=== PATIENT | female | born 1975 | race Caucasian/White ===

== ENCOUNTER 2018-10-20 11:37 | Emergency (ER) | payer BC ==
[2018-10-20 12:31] VITALS: BP 149/94
--- NOTE | 2018-10-20 12:39 | UC ---
Respiratory Complaint HPI - HPI Summary HPI Summary: 2 WEEKS OF COUGH AND CONGESTION. NO FEVER, NAUSEA/VOMITING. NO SORE THROAT OR EAR PAIN. STATES SHE GETS THIS REACTION TO THE FLU SHOT EVERY YEAR. SYMPTOMS IMPROVE WITH STEROIDS AND AN INHALER. - History of Current Complaint Chief Complaint: UCRespiratory Stated Complaint: NON-PRODUCTIVE COUGH Time Seen by Provider: 10/20/18 12:33 Hx Obtained From: Patient Onset/Duration: Gradual Onset, Lasting Weeks, Still Present Timing: Constant Severity Initially: Moderate Severity Currently: Moderate Pain Intensity: 0 Pain Scale Used: 0-10 Numeric Character: Cough: Productive Aggravating Factors: Nothing Alleviating Factors: Nothing Associated Signs And Symptoms: Positive: URI, Nasal Congestion. Negative: Dyspnea, Fever, Chills, Wheezing - Allergies/Home Medications Allergies/Adverse Reactions: Allergies Allergy/AdvReac Type Severity Reaction Status Date / Time latex Allergy Rash Verified 10/20/18 12:31 adhesive tape Allergy Rash Uncoded 10/20/18 12:31 Home Medications: Home Medications L.acidoph,Paracasei, B.lactis [Probiotic] 1 each PO 10/20/18 [History] Losartan Potassium [Cozaar] 50 mg PO 10/20/18 [History] guaiFENesin [Mucinex] 600 mg PO 10/20/18 [History] PMH/Surg Hx/FS Hx/Imm Hx Cardiovascular History: Hypertension - Surgical History Surgical History: Yes Surgery Procedure, Year, and Place: CSP FUSION 2011, DEPRESSED SKULL FRACTURE A INFANT 6 MTHS OLD. GALLBLADDER ENDOMETRIAL ABLATION-HERNIA SURGERY - Family History Known Family History: Positive: None, Non-Contributory - Social History Alcohol Use: Occasionally Substance Use Type: None Smoking Status (MU): Heavy Every Day Tobacco Smoker Type: Cigarettes Review of Systems All Other Systems Reviewed And Are Negative: Yes Constitutional: Positive: Negative Eyes: Positive: Negative ENT: Positive: Nasal Discharge Respiratory: Positive: Cough Cardiovascular: Positive: Negative Gastrointestinal: Positive: Negative Physical Exam Triage Information Reviewed: Yes Appearance: Well-Appearing, No Pain Distress, Well-Nourished Vital Signs: Initial Vital Signs Temp 98.8 F 10/20/18 12:28 Pulse 100 10/20/18 12:28 Resp 18 10/20/18 12:28 BP 149/94 10/20/18 12:28 Pulse Ox 96 10/20/18 12:28 Vital Signs Reviewed: Yes Eyes: Positive: Conjunctiva Clear ENT: Positive: Hearing grossly normal, Pharynx normal, TMs normal Neck: Positive: Supple, Nontender, No Lymphadenopathy Respiratory: Positive: Normal breath sounds - WITH THE OCCASIONAL COARSE SOUND, No respiratory distress, No accessory muscle use Cardiovascular Exam: Normal Abdomen Description: Positive: Soft Musculoskeletal: Positive: No Edema Neurological: Positive: Alert Psychological: Positive: Age Appropriate Behavior Skin: Negative: Rashes UC Diagnostic Evaluation - Laboratory O2 Sat by Pulse Oximetry: 96 Respiratory Course/Dx - Differential Dx/Diagnosis Provider Diagnosis: Acute bronchitis Discharge - Sign-Out/Discharge Documenting (check all that apply): Patient Departure All imaging exams completed and their final reports reviewed: No Studies - Discharge Plan Condition: Stable Disposition: HOME Prescriptions: Albuterol HFA INHALER* [Ventolin HFA Inhaler*] 2 puff INH Q4H PRN #1 mdi PRN Reason: Shortness Of Breath predniSONE TAB* [Deltasone TAB*] 50 mg PO DAILY #5 tab Patient Education Materials: Acute Bronchitis (ED) Referrals: Lizzy Price [Primary Care Provider] - If Needed Additional Instructions: NO INDICATION FOR ANTIBIOTICS AT PRESENT. REST, HYDRATE, OTC MEDS NEEDED. WILL TREAT WITH PREDNISONE AND ALBUTEROL TO HELP WITH AIRWAY INFLAMMATION. SEEK FOLLOW-UP IF YOU ARE NOT IMPROVING OVER THE NEXT 1-2 WEEKS. - Billing Disposition and Condition Condition: STABLE Disposition: Home
== END 2018-10-20 12:56 | disposition home or self-care (01) ==
LOC: UCEAST 11:37
DX: J20.9 Acute bronchitis, unspecified (principal); I10 Essential (primary) hypertension; F17.210 Nicotine dependence, cigarettes, uncomplicated
CPT/HCPCS: 99212; G0463

== ENCOUNTER 2018-11-24 10:23 | Emergency (ER) | payer BC ==
[2018-11-24 11:12] VITALS: BP 160/72
[2018-11-24] MEDS ORDERED: Albuterol/Ipratropium NEB.SOL* Albuterol 2.5 MG/Ipratropium 0.5 MG 3 ML INH ONE (11:35)
[2018-11-24] MEDS ORDERED: predniSONE TAB* 20 MG PO ONE (11:35)
--- NOTE | 2018-11-24 11:36 | UC ---
Respiratory Complaint HPI - HPI Summary HPI Summary: 43 y/o female presents to the urgent care c/o productive cough, wheezing, chest congestion for the past 6 weeks. Pt reports her symptoms started after she got the influenza vaccine in 10/2018. She was then seen hereand Dx asthma for three-four weeks, coughing, dizziness, chest congestion, afebrile, productive cough. - History of Current Complaint Chief Complaint: UCRespiratory Stated Complaint: URI Time Seen by Provider: 11/24/18 11:16 Hx Obtained From: Patient Hx Last Menstrual Period: 11/10/18 ?: No Onset/Duration: Gradual Onset, Lasting Weeks - 6 weeks, Worse Since - 1 week Timing: Intermittent Episodes Severity Initially: Mild Severity Currently: Moderate Pain Intensity: 4 Pain Scale Used: 0-10 Numeric Character: Cough: Productive, Sputum Description: - yellowish Aggravating Factors: Recumbent Position Alleviating Factors: OTC Meds Associated Signs And Symptoms: Positive: Dyspnea, Wheezing, Dizziness, URI, Nasal Congestion, Sinus Discomfort - Risk Factors Pulmonary Embolism Risk Factors: Negative Cardiac Risk Factors: Hypertension Pseudomonas Risk Factors: Negative Tuberculosis Risk Factors: Negative - Allergies/Home Medications Allergies/Adverse Reactions: Allergies Allergy/AdvReac Type Severity Reaction Status Date / Time latex Allergy Rash Verified 11/24/18 11:12 adhesive tape Allergy Rash Uncoded 11/24/18 11:12 Home Medications: Home Medications Acetaminophen [Tylenol Extra Strength] 1,000 mg PO ONCE PRN 11/24/18 [History Confirmed 11/24/18] Loratadine [Claritin 10 MG CAP] 1 tab PO DAILY PRN 11/24/18 [History Confirmed 11/24/18] PMH/Surg Hx/FS Hx/Imm Hx Previously Healthy: Yes Cardiovascular History: Hypertension - Surgical History Surgical History: Yes Surgery Procedure, Year, and Place: CSP FUSION 2011, DEPRESSED SKULL FRACTURE A 6 MTHS OLD. GALLBLADDER ENDOMETRIAL ABLATION-HERNIA SURGERY - Family History Known Family History: Positive: Cardiac Disease, Hypertension - Social History Occupation: Employed Full-time Lives: With Family Alcohol Use: Occasionally Substance Use Type: None Smoking Status (MU): Heavy Every Day Tobacco Smoker Type: Cigarettes Amount Used/How Often: 1 ppd Household Exposure Type: Cigarettes Review of Systems All Other Systems Reviewed And Are Negative: Yes Constitutional: Positive: Negative Skin: Positive: Negative Eyes: Positive: Negative ENT: Positive: Nasal Discharge - yeelowish, Sinus Congestion, Sinus Pain/ Tenderness, Other - dizziness at times Respiratory: Positive: Shortness Of Breath - at times, Cough - rpoductive w/ yellowish phlegm, Other - wheezing Cardiovascular: Positive: Negative Gastrointestinal: Positive: Negative Genitourinary: Positive: Negative Motor: Positive: Negative Neurovascular: Positive: Negative Musculoskeletal: Positive: Negative Neurological: Positive: Negative Psychological: Positive: Negative Is Patient Immunocompromised?: No Physical Exam - Summary Physical Exam Summary: Vital Signs Reviewed: Yes General: well developed, well nourished female sitting in the examining table w/ o any apparent distress Eyes: Positive: Conjunctiva Clear - PERRLA, EOMI, fundi grossly normal ENT: Positive: Normal ENT inspection, Hearing grossly normal, Pharynx normal, Nasal congestion - edematous and erythematous nasal mucosa, Nasal drainage - yellowish drainage, TMs normal. Negative: Tonsillar swelling, Tonsillar exudate Neck: Positive: Supple, Nontender, No Lymphadenopathy Respiratory: no orthopnea or dyspnea. Able to speak in full sentences, no retractions or accessory muscle use, no tripod position, stridor, or head bobbing. Positive breath sounds bilaterally. diffuse scattered wheezing and rhonchi on b/L lungs, no crackles or rales. Cardiovascular: Positive: RRR, No Murmur, Pulses Normal, Brisk Capillary Refill Abdomen Description: Positive: Nontender, No Organomegaly, Soft. Negative: CVA Tenderness (R), CVA Tenderness (L) Bowel Sounds: Positive: Present Musculoskeletal Exam: Normal Musculoskeletal: Positive: Strength Intact, ROM Intact, No Edema Neurological Exam: Normal Psychological Exam: Normal Skin Exam: Normal Triage Information Reviewed: Yes Vital Signs: Initial Vital Signs Temp 97.5 F 11/24/18 11:07 Pulse 82 11/24/18 11:07 Resp 18 11/24/18 11:07 BP 160/72 11/24/18 11:07 Pulse Ox 99 11/24/18 11:07 UC Diagnostic Evaluation - Laboratory O2 Sat by Pulse Oximetry: 99 Respiratory Course/Dx - Differential Dx/Diagnosis Differential Diagnosis/HQI/PQRI: Asthma, Bronchitis, Influenza, Lower Resp Infection, Sinusitis, Other - pneumonia Provider Diagnosis: Acute bronchitis, Wheezing, Uncontrolled hypertension Discharge - Sign-Out/Discharge Documenting (check all that apply): Patient Departure - D/C home All imaging exams completed and their final reports reviewed: Yes - Discharge Plan Condition: Stable Disposition: HOME Prescriptions: Benzonatate CAP* [Tessalon 100 MG CAP*] 100 mg PO TID PRN #21 cap PRN Reason: Cough DOXYcycline CAP(*) [DOXYcycline 100MG CAP(*)] 100 mg PO BID #20 cap Fluconazole 150 MG TAB* [Diflucan 150 MG TAB*] 150 mg PO ONCE #1 tablet predniSONE TAB* [Deltasone 20 MG TAB*] 20 mg PO DAILY #8 tab Patient Education Materials: Acute Bronchitis (ED), Wheezing (ED) Forms: *Work Release Referrals: Mike STEELE,Lizzy [Primary Care Provider] - 3 Days Additional Instructions: 1-Please take full course of antibiotic to avoid resistance. Take Prednisone PO as directed starting tomorrow to alleviate symptoms. First dose given at the clinic today. 2-Take Tessalon PO tabs as directed and use the albuterol inhaler to alleviate cough. Increase fluid intake, rest and eat well. 3- If symptoms do not improve or worsen or your develop SOB with fever and severe wheezing please go immediately to the ER further evaluation and treatment. 4- F/u with your PCP in 3 days for further management on your symptoms 5- Your BP is elevated today. Please take your BP medications and decrease salt in your diet, monitor BP and if it continues to be elevated please f/u with your PCP for further management. If you develop chest pain, dizziness, visual disturbances, SOB, or severe TIDWELL please go immediately to the ER for further management - Billing Disposition and Condition Condition: STABLE Disposition: Home
== END 2018-11-24 12:34 | disposition home or self-care (01) ==
LOC: UCEAST 10:23
DX: J20.9 Acute bronchitis, unspecified (principal); R06.2 Wheezing; I10 Essential (primary) hypertension; F17.210 Nicotine dependence, cigarettes, uncomplicated
CPT/HCPCS: 71046; 99212; A9270-GY; G0463; J7512